=== PATIENT | male | born 1975 | race African-American/Black ===

== ENCOUNTER 2023-10-07 10:34 | Emergency (ER) | payer SELFPAY ==
[2023-10-07 10:50] VITALS: BP 162/94; PULSE 115; O2SAT 98
[2023-10-07 11:07] VITALS: BP 144/89; PULSE 97; RESP 18; TEMP 36.9; O2SAT 98; BMI 32.1
--- NOTE | 2023-10-07 11:36 | ECG_ITS ---
Test Reason : CHECK QT INTERVAL Blood Pressure : / mmHG Vent. Rate : 075 BPM Atrial Rate : 075 BPM P-R Int : 146 ms QRS Dur : 080 ms QT Int : 436 ms P-R-T Axes : 059 019 -01 degrees QTc Int : 486 ms Normal sinus rhythm Prolonged QT Abnormal ECG No previous ECGs available Referred By: Alicia Dahl Electronically Signed By:Dada Yates
--- NOTE | 2023-10-07 11:52 | ED_ITS ---
HPI - Psych General Chief Complaint: Psychiatric Symptoms Stated Complaint: ?CHECK Time Seen by Provider: 10/07/23 10:56 Source: patient Mode of arrival: ambulatory Limitations: no limitations History of Present Illness ED Provider: SOUMYA DAVENPORT PA-C HPI Narrative: 48-year-old male with no significant past medical history presents to the ED today for evaluation of paranoid delusions which began last night. Patient currently residing in [facility] that he is renting. He states that he went to leave the [facility] yesterday in heard the clicking sound of a gun loading. He states he did not see a gun however ran back into the house. Reports seeing an open door upstairs that can only be opened by another person. He did not visualize any other individuals within the house however saw the door closing and became concerned that there were other individuals within the house. Reports similar symptoms when he was abusing methamphetamines however he is denying any illicit substance use. He does report taking psilocybin last night prior to onset of paranoia. He does endorse alcohol consumption. States he does not drink daily however when he drinks I drink a lot . Reports consuming 3/4 of a handle of vodka yesterday. Denies history of withdrawal or withdrawal seizures. Denies SI/ HI. Denies AH/TH. Denies any physical concerns at present. Related Data Allergies Allergy/AdvReac Type Severity Reaction Status Date / Time No Known Allergies Allergy Verified 10/07/23 11:12 Review of Systems 2 Review of Systems: Constitutional: No fever, chills, fatigue, night sweats, weight changes ENT/Mouth: No ear pain, hearing loss, nasal congestion, sinus pain, rhinorrhea, sore throat Eyes: No eye pain, swelling, redness, vision changes, discharge Cardio: No chest pain, palpitations, ERWIN, orthopnea, peripheral edema Pulm: No SOB, cough, sputum, wheezing, dyspnea, hemoptysis GI: No nausea, vomiting, hematemesis, abdominal pain, diarrhea, constipation, hematochezia, melena : No irregular bleeding, dysuria, frequency, urgency, hesitancy, hematuria, flank pain, urinary flow changes, urinary incontinence or retention MSK: No back pain, neck pain, joint pain, myalgias Skin: No lesions, rashes Neuro: No weakness, numbness, paresthesias, LOC, dizziness, headache Psych: No anxiety/panic, depression, SI/HI, AH/VH, +paranoia All other systems reviewed and are negative. [facility] Past Medical History Attestation statement: The following information was validated with the patient. Source: old records reviewed and nursing notes reviewed Social History Social History Alcohol intake: current Alcohol intake frequency: 3 or more drinks per day Alcohol type: hard liquor Smoked in Last 30 Days: Yes Use of substances other than those prescribed or required for medical reasons: Yes Substance Use Type: Hallucinogens Advance Directives: No Physical Exam 2 Vital Signs: Vital Signs: Last Vital Signs Temp 98.4 F 10/07/23 13:01 Pulse 97 10/07/23 13:01 Resp 18 10/07/23 13:01 BP 144/89 H 10/07/23 13:01 Pulse Ox 98 10/07/23 13:01 O2 Del Method Room Air 10/07/23 13:01 BMI result Body Mass Index 32.1 Patient hypertensive, vitals otherwise WNL Const: General: cooperative, healthy appearing, comfortable and no acute distress Orientation/consciousness: patient oriented x3 Limitations: no limitations HEENT: Head: Yes normal to inspection, Yes No palpable skull fracture present, Yes normocephalic and Yes atraumatic Eyes: General: appearance normal, both eyes and all related structures P upils: Equal, round and reactive pupils present Neck: Neck: Yes normal visual inspection and Yes full ROM Resp: Effort & Inspection: normal respiratory effort and able to speak in complete sentences Auscultation: clear to auscultation bilaterally Cardio: Rate: regular rate Rhythm: regular rhythm GI: Inspection: Yes normal to inspection Palpation (GI): Soft to palpation and nontender : General: Yes no CVA tenderness Back/Spine/Pelvis: Other: No midline spinous tenderness or step off deformity. No paraspinal muscle tenderness. Back: no CVA tenderness Skin: General skin exam: no rashes or lesions noted Neuro: General: patient oriented x3, gait normal, tone normal and moves all extremities Cranial nerves: Yes CN's II-XII intact bilaterally and Yes Equal, round and reactive pupils present Motor exam (neuro): 5/5 motor strength present throughout, Pronator motor function not present, no tremor noted, no asterixis and Motor fasciculations not present Pupils: Normal pupillary reactivity/response: bilateral Extrem: General: Yes normal to inspection Course Course Course Narrative: 1238-- CBC without leukocytosis or left shift. Mildly anemic with a H&H 13.8/39.4. Chemistry without acute electrolyte abnormality requiring intervention. Normal renal function. AST elevated at 50 likely secondary to patient's alcohol abuse. Ethanol undetectable. EKG showing normal sinus rhythm with a rate of 75 beats per minute, QT 436, QTC 486, no acute ischemic changes or ST elevations. UA and utox pending. > patient placed in physician observation pending care team consultation. Medical Decision Making Medical Decision Making [facility] Narrative: 48-year-old male with no significant past medical history presents to the ED today for evaluation of paranoid delusions which began last night. Patient hypertensive to 144/89. Vitals otherwise WNL. He is nontoxic-appearing and in no distress. Differential diagnosis includes paranoia, polysubstance use, ETOH abuse, ETOH intoxication Plan for labs, UA, utox, ekg, care team consultation Differential Diagnosis Differential Diagnoses: The differential diagnosis associated with the presentation includes As above Admission/Observation Consideration of admission/observation: Escalation of care including admission/observation considered Lab Data MDM Lab Attestation statement: I reviewed the patient's lab results. As above 10/07/23 11:56 10/07/23 11:56 Labs: Lab Results 10/07/23 Range/Units 11:56 WBC 8.6 (4.8-10.8) X10*3/uL RBC 4.29 L (4.60-5.80) X10*6/uL Hgb 13.8 L (14.0-18.0) g/dl Hct 39.4 L (42.0-52.0) % MCV 91.8 (80.0-98.0) fL MCH 32.2 (27.0-33.0) pg MCHC 35.0 (31.0-36.0) g/dl RDW 13.5 (11.0-16.0) % Plt Count 273 (160-400) X10*3/uL MPV 10.4 (9.4-12.4) fL Immature Gran % (Auto) 0.2 (0.0-0.4) % Neut % (Auto) 70.8 (45-73) % Lymph % (Auto) 18.1 L (20-40) % Schleicher % (Auto) 9.3 (2-11) % Eos % (Auto) 0.7 (0-4) % Baso % (Auto) 0.9 (0-2) % Lymph # (Auto) 1.6 (1.2-4.9) X10*3/uL Schleicher # (Auto) 0.8 (0.1-1.2) X10*3/uL Eos # (Auto) 0.1 (0.0-0.4) X10*3/uL Baso # (Auto) 0.1 (0.0-0.2) X10*3/uL Abs Immat Gran (auto) 0.02 (0.00-0.03) X10*3/uL Absolute Neuts (auto) 6.1 (2.0-8.3) x10*3/uL Absolute Nucleated RBC 0.000 (0.0-0.012) X10*3/uL Nucleated RBC % (auto) 0.0 (0.0-0.2) /100WBC Sodium 141 (135-145) mmol/L Potassium 3.3 (3.3-5.1) mmol/L Chloride 107 (96-108) mmol/L Carbon Dioxide 23 (22-29) mmol/L Anion Gap 14 (12-20) BUN 11 (9-16) mg/dL Creatinine 0.76 (0.5-1.4) mg/dL Estim Creat Clear Calc 149.2 Estimated GFR > 60 Random Glucose 83 (60-115) mg/dL Calcium 9.6 (8.4-10.2) mg/dL Total Bilirubin 1.1 H (0.0-1.0) mg/dL AST 50 H (5-37) U/L ALT 39 (0-40) U/L Alkaline Phosphatase 68 (39-117) U/L Total Protein 7.2 (6.5-8.0) g/dL Albumin 4.2 (3.5-5.0) g/dL Ethyl Alcohol < 10 mg/dL Independent Interpretation I performed an independent interpretation of an: EKG Interpretation: EKG showing normal sinus rhythm with a rate of 75 beats per minute, QT 436, QTC 486, no acute ischemic changes or ST elevations. Social Determinants Patient?s care significantly limited by Social Determinants of Health including: Other Social Determinant of Health Critical Care Time Critical Care Time Critical Care Time: No Discharge Plan Discharge Clinical Impression: Paranoia Patient Disposition: Still a Patient Interventions: [place]-Suicide Risk Severity Scale Last Done: 10/07/23 13:04 Print Language: Kenyan
[2023-10-07 12:04] LABS: MANUAL DIFF FLAG NO
[2023-10-07 12:06] LABS: Basophils Absolute Auto 0.1 X10*3/uL (0.0-0.2); Basophils Percent Auto 0.9 % (0-2); Eosinophils Absolute Auto 0.1 X10*3/uL (0.0-0.4); Eosinophils Percent Auto 0.7 % (0-4); Hematocrit 39.4 % (42.0-52.0); Hemoglobin 13.8 g/dl (14.0-18.0); Imm Gran Abs Auto 0.02 X10*3/uL (0.00-0.03); Imm Gran Pct Auto 0.2 % (0.0-0.4); Lymphocytes Absolute Auto 1.6 X10*3/uL (1.2-4.9); Lymphocytes Percent Auto 18.1 % (20-40); Mean Corpuscular Hemoglobin 32.2 pg (27.0-33.0); Mean Corpuscular Volume 91.8 fL (80.0-98.0); Mean Platelet Volume 10.4 fL (9.4-12.4); Monocytes Absolute Auto 0.8 X10*3/uL (0.1-1.2); Monocytes Percent Auto 9.3 % (2-11); Neutrophils Absolute Auto 6.1 x10*3/uL (2.0-8.3); Neutrophils Percent Auto 70.8 % (45-73); Platelet Count 273 X10*3/uL (160-400); Red Blood Count 4.29 X10*6/uL (4.60-5.80); Red Cell Distribution Width 13.5 % (11.0-16.0); White Blood Count 8.6 X10*3/uL (4.8-10.8)
[2023-10-07 12:22] LABS: Alanine Aminotransferase 39 U/L (0-40); Albumin Level 4.2 g/dL (3.5-5.0); Alkaline Phosphatase 68 U/L (39-117); Anion Gap 14 (12-20); Aspartate Amino Transferase 50 U/L (5-37); Bilirubin Total 1.1 mg/dL (0.0-1.0); Blood Urea Nitrogen 11 mg/dL (9-16); Calcium 9.6 mg/dL (8.4-10.2); Carbon Dioxide 23 mmol/L (22-29); Chloride 107 mmol/L (96-108); Creatinine Clr Calc Pharmacy 149.2; Estimated Glomerular Filt Rate > 60; Ethanol < 10 mg/dL; Glucose Random 83 mg/dL (60-115); Potassium 3.3 mmol/L (3.3-5.1); Sodium 141 mmol/L (135-145); Total Protein 7.2 g/dL (6.5-8.0)
[2023-10-07 13:01] VITALS: BP 144/89; PULSE 97; RESP 18; TEMP 36.9; O2SAT 98
--- NOTE | 2023-10-07 15:26 | MHC.CARE ---
Pt refusing UA/UTOX, he reports using mushrooms last night and this AM, patient paranoid and may need to be seen in AM.
--- NOTE | 2023-10-07 22:27 | MHC.EDTECH ---
pt contunues to refuse UA. RN AWARE.
[2023-10-07 22:59] VITALS: BP 145/90; PULSE 68; RESP 16; TEMP 36.4
[2023-10-07 23:58] VITALS: BP 145/90; PULSE 68; RESP 16; TEMP 36.4; O2SAT 98
== END 2023-10-07 23:58 | disposition home or self-care (01) ==
PROVIDERS: Emergency Provider Emergency Medicine
DX: F23 Brief psychotic disorder (principal); D64.9 Anemia, unspecified; R94.31 Abnormal electrocardiogram [ECG] [EKG]; F16.10 Hallucinogen abuse, uncomplicated; Z79.899 Other long term (current) drug therapy; Z51.81 Encounter for therapeutic drug level monitoring
CPT/HCPCS: 36415; 80053; 80307; 85025; 93005; 99284; 99285; S9485

== ENCOUNTER → 2023-10-07 11:36 | Outpatient (BNV) | payer BC, SELFPAY | PROVIDERS: Emergency Provider Emergency Medicine; Visit Provider Internal Medicine Cardiovascular Disease | DX: R94.31 Abnormal electrocardiogram [ECG] [EKG] (principal) | CPT/HCPCS: 93010 ==

== ENCOUNTER 2023-10-13 17:18 | Emergency (ER) | payer SELFPAY ==
[2023-10-13 17:27] VITALS: BP 158/98; PULSE 124; O2SAT 98
[2023-10-13 17:31] VITALS: BP 132/93; PULSE 129; RESP 20; TEMP 36.1; O2SAT 96; BMI 32.1
[2023-10-13 17:35] VITALS: BP 132/93; PULSE 129; RESP 20; TEMP 36.1; O2SAT 96
--- NOTE | 2023-10-13 18:12 | ED.PSYCH ---
HPI - Psych General Chief Complaint: Psychiatric Symptoms Stated Complaint: AMS PARANOIA Time Seen by Provider: 10/13/23 17:32 History of Present Illness HPI Narrative: 55 years old presents today with having thoughts of paranoia feeling unsafe in the community. Positive EtOH. Positive recreational drugs. Patient would not tell me which ones. Had previously used mushrooms in the past. No coughing or congestion. Wants to go to rehab Related Data Home Medications ?Medication ?Instructions ?Recorded ?Confirmed No Known Home Meds 10/13/23 10/13/23 Allergies Allergy/AdvReac Type Severity Reaction Status Date / Time Milk Containing Products Allergy Abdominal Verified 10/13/23 17:34 (Dairy) Pain Review of Systems Review of Systems: Positive feeling like somebody is chasing him. No suicidal ideation Yes all other systems are reviewed and are negative [facility] Past Medical History Attestation statement: The following information was validated with the patient. Social History Social History Smoked in Last 30 Days: Yes Use of substances other than those prescribed or required for medical reasons: No Advance Directives: No Advance Directives Information Provided: No Do you have a plan to hurt others: No Plan Physical Exam Vital Signs: Vital Signs: Last Vital Signs Temp 98.5 F 10/13/23 23:25 Pulse 105 H 10/13/23 23:25 Resp 20 10/13/23 23:25 BP 142/90 H 10/13/23 23:25 Pulse Ox 98 10/13/23 23:25 O2 Del Method Room Air 10/13/23 23:25 BMI result Body Mass Index 32.1 Appearance: Alert. Oriented X3. No acute distress. Eyes: Pupils equal, round and reactive to light. ENT: Pharynx normal. Neck: Normal inspection. Neck supple. No lymph nodes noted. No crepitus CVS: Normal heart rate and rhythm. Pulses normal. Normal S1 and S2 Respiratory: No respiratory distress. Breath sounds normal. No Wheezing. No rales Abdomen: Soft and nontender. No rigidity. No distention. good BS x4 Skin: Skin warm and dry. Normal skin color. Normal skin turgor. Extremities: No lower extremity edema. Neurovascular intact to all extremities. No Lacerations. No Rash Neuro: Oriented X 3. No motor deficit. No sensory deficit. Moving all extermities. No slurred speech. Cranial nerves intact Medical Decision Making Lab Data 10/13/23 18:29 10/13/23 18:29 Labs: Lab Results 10/13/23 10/13/23 Range/Units 18:29 22:48 WBC 11.2 H (4.8-10.8) X10*3/uL RBC 5.07 (4.60-5.80) X10*6/uL Hgb 16.3 (14.0-18.0) g/dl Hct 46.3 (42.0-52.0) % MCV 91.3 (80.0-98.0) fL MCH 32.1 (27.0-33.0) pg MCHC 35.2 (31.0-36.0) g/dl RDW 13.2 (11.0-16.0) % Plt Count 356 (160-400) X10*3/uL MPV 10.0 (9.4-12.4) fL Immature Gran % (Auto) 0.4 (0.0-0.4) % Neut % (Auto) 73.3 H (45-73) % Lymph % (Auto) 16.3 L (20-40) % Turner % (Auto) 9.3 (2-11) % Eos % (Auto) 0.2 (0-4) % Baso % (Auto) 0.5 (0-2) % Lymph # (Auto) 1.8 (1.2-4.9) X10*3/uL Turner # (Auto) 1.1 (0.1-1.2) X10*3/uL Eos # (Auto) 0.0 (0.0-0.4) X10*3/uL Baso # (Auto) 0.1 (0.0-0.2) X10*3/uL Abs Immat Gran (auto) 0.05 H (0.00-0.03) X10*3/uL Absolute Neuts (auto) 8.2 (2.0-8.3) x10*3/uL Absolute Nucleated RBC 0.000 (0.0-0.012) X10*3/uL Nucleated RBC % (auto) 0.0 (0.0-0.2) /100WBC Sodium 143 (135-145) mmol/L Potassium 3.4 (3.3-5.1) mmol/L Chloride 104 (96-108) mmol/L Carbon Dioxide 20 L (22-29) mmol/L Anion Gap 22 H (12-20) BUN 14 (9-16) mg/dL Creatinine 0.90 (0.5-1.4) mg/dL Estim Creat Clear Calc 116.6 Estimated GFR > 60 Random Glucose 55 L* (60-115) mg/dL Calcium 9.7 (8.4-10.2) mg/dL Total Bilirubin 0.5 (0.0-1.0) mg/dL AST 27 (5-37) U/L ALT 32 (0-40) U/L Alkaline Phosphatase 64 (39-117) U/L Total Protein 8.4 H (6.5-8.0) g/dL Albumin 4.7 (3.5-5.0) g/dL Urine Color Yellow Urine Appearance Clear Urine pH 5.5 (5.0-9.0) Ur Specific Waterman 1.020 (1.005-1.025) Urine Protein Trace (Neg-Trace) mg/dL Urine Glucose (UA) Negative (Negative) mg/dL Urine Ketones 40 (Negative) mg/dL Urine Blood Small (1+) H (Negative) Urine Nitrite Negative (Negative) Ur Leukocyte Esterase Negative (Negative) Urine RBC 0-2 (0-2) /HPF Urine WBC 0-5 (0-5) /HPF Ur Squamous Epith Cells 0-2 (0-2) /HPF Urine Bacteria None Seen (None Seen) Hyaline Casts 3-5 (0-2) /LPF Urine Opiates Screen Not Detected (Not Detect) Ur Buprenorphine Scrn Not Detected (Not Detect) ng/mL Ur Oxycodone Screen Not Detected (Not Detect) ng/mL Urine Methadone Screen Not Detected (Not Detect) ng/mL Urine Fentanyl Screen Not Detected (Not Detect) Ur Barbiturates Screen Not Detected (Not Detect) Ur Phencyclidine Scrn Not Detected (Not Detect) Ur Amphetamines Screen Not Detected (Not Detect) U Benzodiazepines Scrn Not Detected (Not Detect) Urine Cocaine Screen POSITIVE H (Not Detect) U Marijuana (THC) Screen Not Detected (Not Detect) Ethyl Alcohol 70 mg/dL Discharge Plan Discharge Clinical Impression: Depression Patient Disposition: Still a Patient Prescriptions: No Action No Known Home Meds Interventions: [place]-Suicide Risk Severity Scale Last Done: 10/13/23 17:35 Print Language: Belarusian
[2023-10-13 18:34] LABS: MANUAL DIFF FLAG NO
[2023-10-13 18:42] LABS: Basophils Absolute Auto 0.1 X10*3/uL (0.0-0.2); Basophils Percent Auto 0.5 % (0-2); Eosinophils Percent Auto 0.2 % (0-4); Hematocrit 46.3 % (42.0-52.0); Hemoglobin 16.3 g/dl (14.0-18.0); Imm Gran Abs Auto 0.05 X10*3/uL (0.00-0.03); Imm Gran Pct Auto 0.4 % (0.0-0.4); Lymphocytes Absolute Auto 1.8 X10*3/uL (1.2-4.9); Lymphocytes Percent Auto 16.3 % (20-40); Mean Corpuscular HGB Conc 35.2 g/dl (31.0-36.0); Mean Corpuscular Hemoglobin 32.1 pg (27.0-33.0); Mean Corpuscular Volume 91.3 fL (80.0-98.0); Monocytes Absolute Auto 1.1 X10*3/uL (0.1-1.2); Monocytes Percent Auto 9.3 % (2-11); Neutrophils Absolute Auto 8.2 x10*3/uL (2.0-8.3); Neutrophils Percent Auto 73.3 % (45-73); Platelet Count 356 X10*3/uL (160-400); Red Blood Count 5.07 X10*6/uL (4.60-5.80); Red Cell Distribution Width 13.2 % (11.0-16.0); White Blood Count 11.2 X10*3/uL (4.8-10.8)
[2023-10-13 19:03] LABS: Alanine Aminotransferase 32 U/L (0-40); Albumin Level 4.7 g/dL (3.5-5.0); Alkaline Phosphatase 64 U/L (39-117); Anion Gap 22 (12-20); Aspartate Amino Transferase 27 U/L (5-37); Bilirubin Total 0.5 mg/dL (0.0-1.0); Blood Urea Nitrogen 14 mg/dL (9-16); Calcium 9.7 mg/dL (8.4-10.2); Carbon Dioxide 20 mmol/L (22-29); Chloride 104 mmol/L (96-108); Creatinine Clr Calc Pharmacy 116.6; Estimated Glomerular Filt Rate > 60; Ethanol 70 mg/dL; Glucose Random 55 mg/dL (60-115); Potassium 3.4 mmol/L (3.3-5.1); Sodium 143 mmol/L (135-145); Total Protein 8.4 g/dL (6.5-8.0)
--- NOTE | 2023-10-13 19:30 | PC.NURSE ---
patient appears to remain at rest presently awaits care team assessment at present patient appears in no distress.
[2023-10-13 22:58] LABS: Appearance Urine Clear; Color Urine Yellow; Glucose Urine UA Negative (Negative); Leukocyte Esterase Urine Negative (Negative); Nitrite Urine Negative (Negative); PH 5.5 (5.0-9.0); UMIC TRIGGER UACC YES; Urine Blood Small (1+) (Negative); Urine Ketones 40 mg/dL (Negative); Urine Protein Trace mg/dL (Neg-Trace)
[2023-10-13 23:11] LABS: Amphetamine Screen Urine Not Detected (Not Detect); Barbiturates, Urine Not Detected (Not Detect); Benzodiazepines Screen Urine Not Detected (Not Detect); Buprenorphine Scr Not Detected (Not Detect); Cannabinoid Screen Urine Not Detected (Not Detect); Cocaine Screen Urine POSITIVE (Not Detect); Fentanyl, urine Not Detected (Not Detect); Methadone Screen, Urine Not Detected (Not Detect); Opiate Screen Urine Not Detected (Not Detect); Oxycodone Screen Urine Not Detected (Not Detect); Phencyclidine Screen Urine Not Detected (Not Detect)
[2023-10-13 23:25] VITALS: BP 142/90; PULSE 105; RESP 20; TEMP 36.9; O2SAT 98
[2023-10-13 23:30] LABS: Bacteria Urine None Seen (None Seen); RBC Urine 0-2 /HPF (0-2); Squamous Epithelial Cell Urine 0-2 /HPF (0-2); WBC Urine 0-5 /HPF (0-5)
--- NOTE | 2023-10-14 05:24 | PC.NURSE ---
Pt sleeping at the bedside. No apparent distress noted. Breaths are even regular and unlabored with equal chest rises. Monitoring is ongoing.
[2023-10-14 07:17] LABS: Glucose, Whole Blood 83 mg/dL (60-115)
[2023-10-14 08:08] VITALS: BP 127/84; PULSE 82; RESP 18; TEMP 36.9; O2SAT 97
--- NOTE | 2023-10-14 10:41 | MHC.RECOVRN ---
Met with pt in [facility] after cleared by CARE Team. Pt laying in bed, awake, alert, easily engages in conversation, appears comfortable. Pt does not appear to be experiencing withdrawal at this time. Interview somewhat difficult as pt is tangential and is having difficulty answering questions directly. Pt does report alcohol use, most recently, pt reports 1.75 liters vodka Saturday into Saturday as well as 1.75 grams cocaine, [place]. Prior to this, pt reports last use was last weekend. 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 Pt reports he had been to inpatient treatment once before, years ago, in [place], [place]. Pt denies other treatment for ISIAH. Difficult to engage pt in more discussion regarding alcohol/substances. Pt does report interest in ATS, however, is unsure if his insurance is active as he had been out on workers compensation. Pt reports he has insurance through a union as a [employer], t/w unfamiliar with insurance pt is referencing. Educated pt on ATS facilities as well as other recovery supports and resources. Plan for pt to call insurance company to verify that it is active and request information on which ATS facilities it is accepted. Provided pt with written resources as well as t/w contact information if needed. Pt denies questions or concerns for t/w. Discussed with CARE Team.
[2023-10-14 10:48] VITALS: BP 127/84; PULSE 82; RESP 18; TEMP 36.9; O2SAT 97
== END 2023-10-14 10:50 | disposition home or self-care (01) ==
PROVIDERS: Emergency Provider Emergency Medicine Emergency Medical Services
DX: F22 Delusional disorders (principal); R41.82 Altered mental status, unspecified; F14.10 Cocaine abuse, uncomplicated; R53.83 Other fatigue; Z79.899 Other long term (current) drug therapy; Z51.81 Encounter for therapeutic drug level monitoring
CPT/HCPCS: 36415; 80053; 80307; 81001; 81003; 82947; 85025; 99284; S9485